=== PATIENT | male | born 1995 | race Caucasian/White ===

== ENCOUNTER 2016-06-11 19:04 | Emergency (ER) | payer BC ==
[2016-06-11 19:15] VITALS: BP 133/70
--- NOTE | 2016-06-11 19:26 | EDM.PDOC ---
ED HPI ENT - General Chief Complaint: ENT Problem Stated Complaint: sore throat Time Seen by Provider: 06/11/16 19:24 Source of Information: Reports: Patient, RN, RN notes reviewed History Limitations: Reports: No limitations - History of Present Illness INITIAL COMMENTS - FREE TEXT/NARRATIVE: Patient presents to the ED at [facility] with a 3 day history of sore throat and swollen tonsils. Patient states he had a tonsillar abscess in the past and is concerned today. Symptom Onset Date: 06/08/16 Timing/Duration: Reports: Getting worse Location: Reports: throat Quality: Reports: Ache Improves with: Reports: Cold therapy Worsens with: Reports: Eating, Movement Associated Symptoms: Reports: no other symptoms - Related Data Allergies/ADRs: Allergies Allergy/AdvReac Type Severity Reaction Status Date / Time Penicillins Allergy Hives Verified 06/11/16 19:17 Home Meds: Home Meds Albuterol Sulfate [Proventil Hfa] 6.7 gm IH ASDIRECTED PRN 01/03/15 [History] PARoxetine HCl [Paroxetine HCl] 20 mg PO DAILY 01/03/15 [History] Azithromycin [Zithromax] 250 mg PO DAILY #4 tablet 06/11/16 [Rx] busPIRone [Buspar] 10 mg PO TID PRN 06/11/16 [History] predniSONE [Deltasone] 20 mg PO BID #10 tablet 06/11/16 [Rx] Past Medical History - Past Health History Medical/Surgical History: Denies Medical/Surgical History Respiratory History: Reports: Asthma, Other (see below) Other Respiratory History: exercise induced asthma Psychiatric History: Reports: Anxiety Social & Family History - Tobacco Use Smoking Status *Q: Never Smoker Second Hand Smoke Exposure: No - Caffeine Use Caffeine Use: Reports: None - Alcohol Use Days Per Week of Alcohol Use: 0 - Recreational Drug Use Recreational Drug Use: No ED ROS ENT - Review of Systems Review Of Systems: See Below Constitutional: Denies: fever, chills, weakness HEENT: Reports: Ear pain (Left otalgia), Throat pain, Throat swelling. Denies: Eye discharge, Eye pain, Rhinitis, Sinus problem Respiratory: Denies: Shortness of Breath, Cough Cardiovascular: Denies: Chest pain, Palpitations GI/Abdominal: Denies: Abdominal pain, Nausea, Vomiting Skin: Reports: no symptoms Neurological: Denies: Dizziness, Headache ED EXAM, ENT - Physical Exam Exam: See Below Exam Limited By: No limitations General Appearance: alert, no apparent distress Eye Exam: bilateral eye: EOMI, normal inspection, PERRL Ears: normal external exam, normal canal, hearing grossly normal, normal TMs Nose: normal inspection, normal mucousa, clear rhinorrhea Mouth/Throat: Dry mucous membrane, Throat pain, Tonsillar erythema, Tonsillar exudates, Tonsillar swelling Neck: supple Respiratory/Chest: no respiratory distress, lungs clear, normal breath sounds Cardiovascular: regular rate, rhythm Neurological: alert, oriented Skin: Warm, Dry, Intact, Normal color, No rash Course - Vital Signs Last Recorded V/S: Last Vital Signs Temp 37.4 C 06/11/16 19:09 Pulse 90 06/11/16 19:09 Resp 16 06/11/16 19:09 BP 133/70 06/11/16 19:09 Pulse Ox 96 06/11/16 19:09 - Orders/Labs/Meds Orders: Active Orders 24 hr Category Date Time Status Soft Tissue Neck w Cont [CT] Stat Exams 06/11/16 19:32 Taken CULTURE STREP A CONFIRMATION [] Stat Lab 06/11/16 19:39 Results STREP SCRN A RAPID W CULT CONF [] Stat Lab 06/11/16 19:39 Results Azithromycin [Zithromax] 500 mg Med 06/11/16 20:20 Active Sodium Chloride 0.9% [Normal Saline] 250 ml IV ONETIME Sodium Chloride 0.9% [Normal Saline] 1,000 ml Med 06/11/16 20:15 Active IV ASDIRECTED Sodium Chloride 0.9% [Saline Flush] Med 06/11/16 20:10 Active 10 ml FLUSH ASDIRECTED PRN Peripheral IV Insertion Adult [OM.PC] Routine Oth 06/11/16 20:10 Ordered Medication Orders Sodium Chloride (Normal Saline) 1,000 mls @ 999 mls/hr IV ASDIRECTED [facility] Last Admin: 06/11/16 20:29 Dose: 999 mls/hr Azithromycin 500 mg/ Sodium (Chloride) 250 mls @ 250 mls/hr IV ONETIME ONE Stop: 06/11/16 21:19 Last Admin: 06/11/16 20:31 Dose: 250 mls/hr Sodium Chloride (Saline Flush) 10 ml FLUSH ASDIRECTED PRN PRN Reason: Keep Vein Open Labs: Laboratory Tests 06/11/16 06/11/16 Range/Units 19:31 19:37 WBC 7.6 (4.0-10.0) x10^3/uL RBC 4.81 (4.5-6.0) x10^6/uL Hgb 14.3 (14.0-18.0) g/dL Hct 42.1 (40.0-52.0) % MCV 87.5 (78.0-93.0) fL MCH 29.7 (26.0-32.0) pg MCHC 34.0 (32.0-36.0) g/dL RDW Coeff of Ronnell 12.7 (10.0-15.0) % Plt Count 193 (130-400) x10^3/uL Neut % (Auto) 68.0 (50.0-80.0) % Lymph % (Auto) 19.9 L (25.0-50.0) % Maries % (Auto) 9.3 (2.0-11.0) % Eos % (Auto) 2.5 (0.0-4.0) % Baso % (Auto) 0.3 (0.2-1.2) % ESR 10 (0-16) mm/hr Sodium 140 (136-145) mmol/L Potassium 4.4 (3.5-5.1) mmol/L Chloride 102 (98-107) mmol/L Carbon Dioxide 29 (21-32) mmol/L BUN 14 (7-18) mg/dL Creatinine 1.4 H (0.70-1.30) mg/dL Est Cr Clr Drug Dosing 96.23 mL/min Estimated GFR (MDRD) > 60 Glucose 88 (74-106) mg/dL Calcium 9.1 (8.5-10.1) mg/dL C-Reactive Protein 4.0 H (<=0.9) mg/dL Meds: Medications Generic Name Dose Route Start Last Admin Trade Name Freq PRN Reason Stop Dose Admin Sodium Chloride 1,000 mls @ 999 mls/hr 06/11/16 20:15 06/11/16 20:29 Normal Saline IV 999 mls/hr ASDIRECTED ROSALEI Administration Azithromycin 500 mg/ Sodium 250 mls @ 250 mls/hr 06/11/16 20:20 06/11/16 20: 31 Chloride IV 06/11/16 21:19 250 mls/hr ONETIME ONE Administration Sodium Chloride 10 ml 06/11/16 20:10 Saline Flush FLUSH ASDIRECTED PRN Keep Vein Open - Radiology Interpretation Free Text/Narrative:: Call placed to [facility], awaiting report for >45 minutes; informed "it will be a while." Departure - Departure Time of Disposition: 21:04 Disposition: Home, Self-Care 01 Clinical Impression: Tonsillar hypertrophy, Tonsillitis, Tonsillar exudate Prescriptions: Azithromycin [Zithromax] 250 mg PO DAILY #4 tablet predniSONE [Deltasone] 20 mg PO BID #10 tablet Instructions: Tonsillitis Referrals: Troy Tam MD [Primary Care Provider] - Forms: ED Department Discharge Additional Instructions: 1. Stay well hydrated and rest 2. Change out and buy a new toothbrush 3. Gargle with warm salt water several times a day 4. Take medications for the full coarse, even if you are feeling better 5. Alternate Tylenol/Advil as needed 6. See your Primary as symptoms warrant - Problem List Review Problem List Initiated/Reviewed/Updated: Yes - My Orders Last 24 Hours: My Active Orders 06/11/16 19:32 Soft Tissue Neck w Cont [CT] Stat 06/11/16 19:39 CULTURE STREP A CONFIRMATION [RM] Stat STREP SCRN A RAPID W CULT CONF [RM] Stat 06/11/16 20:10 Sodium Chloride 0.9% [Saline Flush] 10 ml FLUSH ASDIRECTED PRN Peripheral IV Insertion Adult [OM.PC] Routine 06/11/16 20:15 Sodium Chloride 0.9% [Normal Saline] 1,000 ml IV ASDIRECTED 06/11/16 20:20 Azithromycin [Zithromax] 500 mg Sodium Chloride 0.9% [Normal Saline] 250 ml IV ONETIME - Assessment/Plan Last 24 Hours: My Active Orders 06/11/16 19:32 Soft Tissue Neck w Cont [CT] Stat 06/11/16 19:39 CULTURE STREP A CONFIRMATION [RM] Stat STREP SCRN A RAPID W CULT CONF [RM] Stat 06/11/16 20:10 Sodium Chloride 0.9% [Saline Flush] 10 ml FLUSH ASDIRECTED PRN Peripheral IV Insertion Adult [OM.PC] Routine 06/11/16 20:15 Sodium Chloride 0.9% [Normal Saline] 1,000 ml IV ASDIRECTED 06/11/16 20:20 Azithromycin [Zithromax] 500 mg Sodium Chloride 0.9% [Normal Saline] 250 ml IV ONETIME
[2016-06-11 20:02] LABS: CHLORIDE,CL 102 mmol/L (98-107); SODIUM,NA 140 mmol/L (136-145)
[2016-06-11] MEDS ORDERED: Sodium Chloride 0.9% 10 ML Syringe FLUSH PRN (20:10)
[2016-06-11] MEDS ORDERED: Sodium Chloride 0.9% 1,000 ML IV SCH (20:15)
[2016-06-11] MEDS ORDERED: Azithromycin 500 MG in Sodium Chloride 0.9% 250 ML IV ONE (20:20)
== END 2016-06-11 21:55 | disposition home or self-care (01) ==
LOC: VM.ED 19:04
DX: J35.1 Hypertrophy of tonsils (principal); Z88.0 Allergy status to penicillin; Z79.899 Other long term (current) drug therapy
CPT/HCPCS: 36415; 70491; 80048; 85025; 85652; 86140; 87081; 87880; 96365; 99283; J0456; J7030; J7050